=== PATIENT | male | born 1945 | race African-American/Black ===

== ENCOUNTER 2019-09-10 20:46 | Inpatient (IN) | payer MEDICAID, OTHER, BC ==
[~2019-09-10] VITALS: Ht 188 cm; Wt 77.1 kg
[2019-09-10] MEDS ORDERED: NITROGLYCERIN 0.4MG TABLET SL SL PRN (21:30)
[2019-09-10] MEDS ORDERED: ASPIRIN 81MG TABLET PO ONE (21:30)
[2019-09-10 21:34] LABS: BASOPHILS % 1.1 % (0.0-2.0); EOSINOPHILS % 3.1 % (0.0-5.0); HEMATOCRIT. 39.6 % (42.0-52.0); HEMOGLOBIN. 13.5 g/dL (14.0-18.0); LYMPHOCYTES % 32.3 % (20.0-50.0); MEAN CORPUSCULAR HEMOGLOBIN 30.9 pg (28.0-32.0); MEAN CORPUSCULAR VOLUME 90.5 fL (80.0-94.0); MEAN PLATELET VOLUME 7.5 fl (7.4-10.4); MONOCYTES % 7.6 % (2.0-8.0); NEUTROPHILS % 55.9 % (40.0-76.0); PLATELET 234 x1000/uL (130-400); RED BLOOD CELL COUNT 4.38 mill/uL (4.7-6.1); RED CELL DISTRIBUTION WIDTH 12.9 % (11.6-14.6)
[2019-09-10 21:36] LABS: CHLORIDE 103 mEq/L (98-107)
[2019-09-11 04:10] VITALS: BP 123/68
[2019-09-11 05:34] VITALS: BP 123/68
[2019-09-11 07:57] VITALS: BP 118/67
[2019-09-11] MEDS: ENOXAPARIN 40MG/0.4ML SYR SUBCUT SCH (08:49)
[2019-09-11] MEDS ORDERED: ACETAMINOPHEN 325MG TABLET PO PRN (09:30)
[2019-09-11] MEDS ORDERED: ONDANSETRON HCL 4MG/2ML INJ IV PRN (09:30)
[2019-09-11 10:13] LABS: LDL CHOLESTEROL 86 mg/dL (5-100)
[2019-09-11 10:14] LABS: HDL CHOLESTEROL 56 mg/dL (40-59)
[2019-09-11] MEDS: ASPIRIN 81MG TABLET PO SCH (10:23)
[2019-09-11] MEDS ORDERED: CARB-33 MT (11:07)
[2019-09-11] MEDS ORDERED: CARB-32 MT (11:07)
[2019-09-11] MEDS ORDERED: LEVO25TA7 MT (11:07)
[2019-09-11 11:53] VITALS: BP 127/72
[2019-09-11] MEDS ORDERED: REGADENOSON 0.4 MG/5 ML IV SCH (13:00)
[2019-09-11] MEDS ORDERED: REGADENOSON 0.4 MG/5 ML IV ONE (14:44)
[2019-09-11] MEDS: CARBIDOPA/LEVODOPA 25/250MG TABLET PO SCH (16:15)
[2019-09-11 20:00] VITALS: BP 119/68
[2019-09-11] MEDS: CARBIDOPA/LEVODOPA 25/100MG TABLET PO SCH (20:13)
[2019-09-11 23:37] LABS: *AMPHETAMINES SCREEN URINE NEGATIVE (NEGATIVE); *BARBITURATES SCREEN URINE NEGATIVE (NEGATIVE); *BENZODIAZEPINES SCREEN URINE NEGATIVE (NEGATIVE); *COCAINE SCREEN URINE NEGATIVE (NEGATIVE)
[2019-09-11 23:38] LABS: CANNABINOID URINE SCREEN NEGATIVE (NEGATIVE); METHADONE URINE SCREEN NEGATIVE (NEGATIVE); OPIATES URINE SCREEN NEGATIVE (NEGATIVE); PHENCYCLIDINE URINE SCREEN NEGATIVE (NEGATIVE)
[2019-09-12] VITALS: BP 115/67
[2019-09-12 04:00] VITALS: BP 120/65
[2019-09-12 07:49] VITALS: BP 119/70
[2019-09-12] MEDS: CARBIDOPA/LEVODOPA 25/250MG TABLET PO SCH (09:00)
[2019-09-12] MEDS ORDERED: LEVOTHYROXINE SODIUM 25MCG TABLET PO SCH (09:00)
[2019-09-12] MEDS: CARBIDOPA/LEVODOPA 25/100MG TABLET PO SCH (09:11)
[2019-09-12] MEDS: ENOXAPARIN 40MG/0.4ML SYR SUBCUT SCH (09:11)
[2019-09-12] MEDS: ASPIRIN 81MG TABLET PO SCH (09:11)
[2019-09-12 11:45] VITALS: BP 119/70
[2019-09-12 12:00] VITALS: BP 100/58
== END 2019-09-12 13:10 | disposition home or self-care (01) | DRG 206 ==
LOC: ER 20:46 → 8WST 09-11 00:36 → ENRESERV 09-11 03:32
PROVIDERS: ADMIT Internal Medicine; ATTEND Internal Medicine
DX: M94.0 Chondrocostal junction syndrome [Tietze] (principal); G20 Parkinson's disease; E03.9 Hypothyroidism, unspecified; I10 Essential (primary) hypertension; E78.5 Hyperlipidemia, unspecified; Z87.891 Personal history of nicotine dependence; Z88.0 Allergy status to penicillin
CPT/HCPCS: 36415; 71045; 78452; 80053; 80061; 80305; 82140; 83880; 84443; 84484; 85025; 93005; 93017; 93306; 99285; A9500; J1650; J2785